=== PATIENT | male | born 1955 | race Caucasian/White ===

== ENCOUNTER 2020-02-13 10:09 | Emergency (ER) | payer OTHER ==
--- NOTE | 2020-02-13 10:38 | ER Document Report ---
ED Medical Screen (RME) - General Chief Complaint: Knee Pain Stated Complaint: KNEE PAIN Time Seen by Provider: 02/13/20 10:31 - HPI Notes: 02/13/20 10:36 64-year-old male with history of gout, hypertension to the emergency department with complaints of severe left knee pain. He states for several weeks the knee is been full of fluid but not particularly painful. Yesterday he started to have pain and then this morning the pain was severe. He cannot bend the knee or really walk on it without excruciating pain. He thought perhaps it was gout although he is never had gout in this knee and took 2 colchicine this morning. When that did not really help his pain he took 2 oxycodone. He states that really still has not helped his pain. He denies any fevers or chills. He denies any recent travel. He denies any blunt trauma. He denies any falls. On brief medical screening exam patient has exquisite tenderness to the supra patellar region and with noted edema. There is mild warmth. I performed a brief medical screening exam on the patient determined that the patient needs further evaluation and management by main side provider. I have placed initial orders to help expedite care. - Related Data Allergies/Adverse Reactions: No Known Allergies Allergy (Unverified 02/13/20 10:34) Physical Exam - Vital signs Vitals: Temp Pulse Resp BP Pulse Ox 98.3 F 82 20 134/85 H 96 02/13/20 10:16 02/13/20 10:16 02/13/20 10:16 02/13/20 10:16 02/13/20 10:16 Course - Vital Signs Vital signs: Temp Pulse Resp BP Pulse Ox 98.3 F 82 20 134/85 H 96 02/13/20 10:16 02/13/20 10:16 02/13/20 10:16 02/13/20 10:16 02/13/20 10:16
[2020-02-13 10:59] LABS: ABSOLUTE EOSINOPHILS # (AUTO) 0.1 10^3/uL (0.0-0.6); ABSOLUTE MONOCYTES (AUTO) 0.7 10^3/uL (0.1-1.4); BASOPHILS % (AUTO) 0.4 % (0-2); LYMPHOCYTES % (AUTO) 26.1 % (13-45); TOTAL CELLS COUNTED % (AUTO) 100 %
--- NOTE | 2020-02-13 11:10 | RADIOLOGY REPORT (SQ) ---
EXAM DESCRIPTION: KNEE LEFT 4 VIEW IMAGES COMPLETED DATE/TIME: 02/13/2020 10:53 am REASON FOR STUDY: left knee pain COMPARISON: None. NUMBER OF VIEWS: Four views. TECHNIQUE: AP, lateral, and both oblique radiographic images acquired of the left knee. LIMITATIONS: None. FINDINGS: MINERALIZATION: Normal. BONES: No acute fracture or dislocation. No worrisome bone lesions. Osteophytes in the medial joint c ompartment. Spurring on the superior surface of the patella. JOINT: No effusion. No chondrocalcinosis. OTHER: Marked prepatellar soft tissue swelling. IMPRESSION: MARKED PREPATELLAR SOFT TISSUE SWELLING. CHRONIC DEGENERATIVE CHANGES. NO SIGNIFICANT BONY FINDINGS. TECHNICAL DOCUMENTATION: JOB ID: [id number] 2010 [email or web address]- All Rights Reserved Reading location - IP/workstation name: [email or web address]
[2020-02-13 11:12] LABS: EOSINOPHILS % (AUTO) 1.1 % (0-6); HEMATOCRIT 43.1 % (37.9-51.0); HEMOGLOBIN 14.7 g/dL (13.5-17.0); MEAN CORPUSCULAR HGB CONC 34.1 g/dL (32.0-36.0); MEAN CORPUSCULAR VOLUME 88 fl (80-97); MONOCYTES % (AUTO) 8.6 % (3-13); PLATELET COUNT 195 10^3/uL (150-450); RED BLOOD COUNT 4.89 10^6/uL (4.35-5.55); RED CELL DISTRIBUTION WIDTH 14.7 % (11.5-14.0); SEGMENTED NEUTROPHILS % (AUTO) 63.8 % (42-78); WHITE BLOOD COUNT 7.8 10^3/uL (4.0-10.5)
[2020-02-13 11:17] LABS: ALBUMIN 4.3 g/dL (3.5-5.0); ALKALINE PHOSPHATASE 71 U/L (38-126); ANION GAP 10 (5-19); ASPARTATE AMINO TRANSFERASE 25 U/L (17-59); BILIRUBIN,DIRECT 0.3 mg/dL (0.0-0.4); BILIRUBIN,TOTAL 0.9 mg/dL (0.2-1.3); BLOOD UREA NITROGEN 15 mg/dL (7-20); CALCIUM 9.5 mg/dL (8.4-10.2); CARBON DIOXIDE 22 mmol/L (22-30); CHLORIDE 105 mmol/L (98-107); GLUCOSE 114 mg/dL (75-110); POTASSIUM 4.4 mmol/L (3.6-5.0); TOTAL PROTEIN 7.2 g/dL (6.3-8.2); URIC ACID 9.6 mg/dL (3.5-8.5)
[2020-02-13] MEDS ORDERED: KETOROLAC TROMETHAMINE INJ/PF 30 MG/1 ML SDV IV ONE (11:38)
[2020-02-13] MEDS ORDERED: DEXAMETHASONE SOD PHOS INJ 10 MG/1 ML VIAL IV ONE (11:38)
--- NOTE | 2020-02-13 13:45 | ER Document Report ---
ED Extremity Problem, Lower - General Chief Complaint: Knee Pain Stated Complaint: KNEE PAIN Time Seen by Provider: 02/13/20 10:31 [facility] Care Provider: [facility] [Primary [facility]] - Follow up as needed Mode of Arrival: Ambulatory Information source: Patient Notes: This 64-year-old man presents to the emergency department with pain is left knee. He apparently has a history of gout states that the symptoms began about 3 days ago but has worsened to the point that he cannot tolerate even light touch thinks that it may be gout, however he is never had gout in his knee before. He denies fever, nausea vomiting, or allergies to medications. - Related Data Allergies/Adverse Reactions: No Known Allergies Allergy (Unverified 02/13/20 10:34) Home Medications: colchicine, oxycodone, lidocaine patch, meloxicam Past Medical History - Social History Smoking Status: Never Smoker Chew tobacco use (# tins/day): No Frequency of alcohol use: None Drug Abuse: None Family History: Reviewed & Not Pertinent Review of Systems - Review of Systems Notes: Constitutional: Negative for fever. HENT: Negative for sore throat. Eyes: Negative for visual changes. Cardiovascular: Negative for chest pain. Respiratory: Negative for shortness of breath. Gastrointestinal: Negative for abdominal pain, vomiting or diarrhea. Genitourinary: Negative for dysuria. Musculoskeletal: + Left knee pain Skin: Negative for rash. Neurological: Negative for headaches, weakness or numbness. 10 point ROS negative except as marked above and in HPI. Physical Exam - Vital signs Vitals: Temp Pulse Resp BP Pulse Ox 98.3 F 82 20 134/85 H 96 02/13/20 10:16 02/13/20 10:16 02/13/20 10:16 02/13/20 10:16 02/13/20 10:16 - Notes Notes: PHYSICAL EXAMINATION: Physical Exam: General: Well-nourished well-developed 64-year-old male in pain secondary to knee inflammation HEENT: NC/AT, pupils equal round and reactive to light, MM moist,nares clear, oropharynx clear, airway patent Neck: supple, no adenopathy, no masses. Good range of motion Lungs: clear, no wheezing, no rales no rhonchi CVS: Regular rate and rhythm no murmur gallop or rub Abdomen: Soft, active, nontender, no masses, no hepatosplenomegaly Ext: Left knee with increased warmth, suprapatellar swelling and tenderness to light touch, decreased range of motion secondary to pain. Neuro: Alert and responsive, moving all 4 extremities on command, cranial nerves intact, no focal findings Skin: Intact no open lesions, no rash PSYCH: Normal mood, normal affect. Course - Re-evaluation Re-evalutation: 02/13/20 13:43 Labs were performed on the patient as a part of the front end screening process his uric acid is elevated to 9.4. Apparently he has colchicine at home, he has not been taking the meloxicam that was prescribed. I am discharging him with a prescription for colchicine and allopurinol. I have encouraged him to restart the meloxicam and he is given a short course of prednisone. He will follow-up with his doctors at the [facility] for long-term management of gout. - Vital Signs Vital signs: Temp Pulse Resp BP Pulse Ox 98.1 F 86 18 137/75 H 100 02/13/20 13:53 02/13/20 13:53 02/13/20 13:53 02/13/20 13:53 02/13/20 13:53 - Laboratory Result Diagrams: 02/13/20 10:44 02/13/20 10:44 Laboratory results interpreted by me: 02/13/20 02/13/20 10:44 10:44 RDW 14.7 H Glucose 114 H Uric Acid 9.6 H - Diagnostic Test Radiology reviewed: Image reviewed, Reports reviewed Radiology results interpreted by me: 02/13/20 13:45 X-ray left knee: Marked prepatellar soft tissue swelling. Discharge - Discharge Clinical Impression: Gouty arthritis of left knee Condition: Good Disposition: HOME, SELF-CARE Instructions: Gout ([facility]), Gout Diet ([facility]) Additional Instructions: You were seen in the emergency department today with pain in the left knee which apparently is related to a gouty flare. You are given a prescription for allopurinol, colchicine, prednisone and were asked to restart your meloxicam as previously prescribed. Please follow-up with your doctors regarding long-term management of gout. HOME CARE INSTRUCTIONS & INFORMATION: Thank you for choosing us for your medical needs. We hope you're satisfied with the care you received. After you leave, you must properly care for your problem and, at the same time, observe its progress. Any condition can change. Some illnesses can change rapidly over hours or days. If your condition worsens, return to the Emergency Department or see your physician promptly. ABOUT YOUR X-RAYS AND EKG'S: If you had an EKG or X-rays taken, they have been read by the Emergency Physician. The X-rays and EKG's will also be read by a Radiologist or Brake Adjuster within 24 hours. If discrepancies are noted, you will be notified by telephone. Please be certain the ED has a correct telephone number & address where you can be reached. Also, realize that some fractures or abnormalities do not show up on initial X-rays. If your symptoms continue, see your physician. ABOUT YOUR LABORATORY TEST: If you had laboratory tests, the results have been reviewed by the Emergency Physician. Some test results (for example cultures) may not be available for several days. You will be contacted if any test result shows you need additional treatment. Please be certain the ED has a correct telephone number and address where you can be reached. ABOUT YOUR MEDICATIONS: You will receive instructions on how to take your medicine on the prescription label you receive. Additional information may be provided by the Pharmacy. If you have questions afterwards, call the ED for clarification or further instructions. Some prescribed medications may cause drowsiness. Do not perform tasks such as driving a car or operating machinery without consulting your Pharmacist. If you feel you need a refill of pain medication, your condition will need re-evaluation. Please do not call for a refill of any medication. ABOUT YOUR SIGNATURE: Signature of this document acknowledges to followin. Understanding that you received emergency treatment and that you may be released before al medical problems are known or treated. Please be certain the ED has a correct phone number & address where you can be reached. 2. Acknowledgement that you will arrange for follow-up care as recommended. 3. Authorization for the Emergency Physician to provide information to your follow-up Physician in order to maximize your care. AT ANY TIME, IF YOUR SYMPTOMS CHANGE SIGNIFICANTLY OR WORSEN OR YOU DEVELOP NEW SYMPTOMS, RETURN TO THE EMERGENCY DEPARTMENT IMMEDIATELY FOR RE-EVALUATION. OUR GOAL IS TO PROVIDE EXCELLENT MEDICAL CARE! WE HOPE THAT WE HAVE MET YOUR EXPECTATIONS DURING YOUR EMERGENCY DEPARTMENT VISIT AND THAT YOU FEEL YOU HAVE RECEIVED EXCELLENT CARE! Prescriptions: Colchicine [Colcrys 0.6 mg Tablet] 1 tab PO BID #60 tab Prednisone [Deltasone 20 mg Tablet] 1 tab PO BID 5 Days #10 tablet Allopurinol [Zyloprim 300 mg Tablet] 300 mg PO DAILY #30 tablet Referrals: [facility] [Primary Care Provider] - Follow up as needed
[2020-02-13 13:56] VITALS: BP 137/75
== END 2020-02-13 13:57 | disposition home or self-care (01) ==
LOC: ER 10:09
DX: M10.062 Idiopathic gout, left knee (principal); M25.562 Pain in left knee; Z88.6 Allergy status to analgesic agent
CPT/HCPCS: 99284; 96375; 96365; 36415; 84550; 85025; 80053; 73564; J1885; J1100